=== PATIENT | female | born 1980 | race Caucasian/White ===

== ENCOUNTER 2017-07-02 13:29 | Emergency (ER) | payer SELFPAY ==
[~2017-07-02] VITALS: Ht 162.6 cm; Wt 93.0 kg
[2017-07-02] MEDS ORDERED: TRIA80OI TP (14:26)
[2017-07-02] MEDS ORDERED: CARB200T PO (14:26)
[2017-07-02] MEDS ORDERED: [UNRECOGNIZED DRUG - CODE] VG (14:26)
[2017-07-02] MEDS ORDERED: METR500T PO (14:26)
[2017-07-02] MEDS ORDERED: FLUC200T4 PO (14:26)
[2017-07-02] MEDS ORDERED: ACYC400T PO (14:26)
[2017-07-02] MEDS ORDERED: LIDOCAINE 2% TOPICAL JELLY 30GM TUBE. TP ONE (15:15)
[2017-07-02] MEDS ORDERED: IV NORMAL SALINE 1000ML BAG 1,000 ML IV ONE (15:30)
[2017-07-02 15:32] LABS: BASO % 1 % (0-3); EOS % 1 % (0-3); HEMATOCRIT 33.5 % (36.0-47.0); HEMOGLOBIN 11.2 g/dL (12.0-15.5); LYMPH # 2.2 x10^3/uL (1.0-4.8); LYMPH % 24 % (24-48); MEAN CORPUSCULAR HEMOGLOBIN 28 pg (25-35); MEAN CORPUSCULAR HGB CONC 34 g/dL (31-37); MEAN CORPUSCULAR VOLUME 85 fL (79-100); MONO % 8 % (0-9); NEUT % 66 % (31-73); PLATELET COUNT 288 x10^3/uL (140-400); RED BLOOD COUNT 3.94 x10^6/uL (3.50-5.40); RED CELL DISTRIBUTION WIDTH 14.4 % (11.5-14.5); WHITE BLOOD COUNT 9.3 x10^3/uL (4.0-11.0)
[2017-07-02 15:42] LABS: CALCIUM 8.5 mg/dL (8.5-10.1); CREATININE 0.8 mg/dL (0.6-1.0); GFR 81.6; POTASSIUM 3.3 mmol/L (3.5-5.1)
--- NOTE | 2017-07-02 15:42 | PHYS DOC ---
Past Medical History Past Medical History: GERD, UTI, Other Additional Past Medical Histor: BIPOLAR Past Surgical History: Cholecystectomy, Alcohol Use: Occasionally Drug Use: None Adult General Chief Complaint Chief Complaint: VAGINAL PROBLEM HPI HPI Patient is a 37 year old female with history of acid reflex presents today complaining of vaginal pain. Patient states a week and a half ago she went [place]. She states after that she had vigorous sex with the boyfriend. Patient states a couple days later she develops vaginal lesions. She states she was seen at urgent care and was diagnosed with herpes and was put on acyclovir. Patient states the lesions have gotten worse she cannot even urinate. Patient denies any fever. Denies any chance she is . Denies any abdominal pain. Review of Systems Review of Systems Constitutional: Denies fever or chills [] Eyes: Denies change in visual acuity, redness, or eye pain [] HENT: Denies nasal congestion or sore throat [] Respiratory: Denies cough or shortness of breath [] Cardiovascular: No additional information not addressed in HPI [] GI: Denies abdominal pain, nausea, vomiting, bloody stools or diarrhea [] : Denies dysuria or hematuria [] Musculoskeletal: Denies back pain or joint pain [] Integument: Denies rash or skin lesions [] Neurologic: Denies headache, focal weakness or sensory changes [] Endocrine: Denies polyuria or polydipsia [] Current Medications Current Medications Current Medications Medications (Trade) Dose Ordered Sig/Douglas Start Time Stop Time Status Last Admin Dose Admin Azithromycin (Zithromax) 1,000 mg 1X ONCE 07/02/17 16:15 07/02/17 16:16 DC 07/02/17 16:30 1,000 MG Ceftriaxone Sodium 50 ml @ 100 mls/hr 1X ONCE 07/02/17 16:15 07/02/17 16:44 DC 07/02/17 16:29 100 MLS/HR Cetirizine HCl (ZyrTEC) 10 mg 1X STAT 07/02/17 16:06 07/02/17 16:13 DC 07/02/17 16:30 10 MG Dexamethasone Sodium Phosphate (Decadron) 10 mg 1X ONCE 07/02/17 16:15 07/02/17 16:16 DC 07/02/17 16:30 10 MG Lidocaine HCl (Xylocaine 2% Topical 30gm Tube) 1 wily 1X ONCE 07/02/17 15:15 07/02/17 15:16 DC 07/02/17 15:13 1 WILY Sodium Chloride 1,000 ml @ 1,000 mls/hr 1X ONCE 07/02/17 15:30 07/02/17 16:29 DC 07/02/17 15:34 1,000 MLS/HR Allergies Allergies Allergies Coded Allergies Type Severity Reaction Last Updated Verified Penicillins Allergy Severe 07/02/17 Yes Sulfa (Sulfonamide Antibiotics) Allergy Severe 07/02/17 Yes Physical Exam Physical Exam Constitutional: Well developed, well nourished, no acute distress, non-toxic appearance. [] HENT: Normocephalic, atraumatic, bilateral external ears normal, oropharynx moist, no oral exudates, nose normal. [] Eyes: PERRLA, EOMI, conjunctiva normal, no discharge. [] Neck: Normal range of motion, no tenderness, supple, no stridor. [] Cardiovascular:Heart rate regular rhythm, no murmur [] Lungs & Thorax: Bilateral breath sounds clear to auscultation [] Abdomen: Bowel sounds normal, soft, no tenderness, no masses, no pulsatile masses. [] Pelvic exam, external pelvic area with a moderate wound suspicious of herpes. Unable to do pelvic exam. Skin: Warm, dry, no erythema, no rash. [] Back: No tenderness, no CVA tenderness. [] Extremities: No tenderness, no cyanosis, no clubbing, ROM intact, no edema. [] Neurologic: Alert and oriented X 3, normal motor function, normal sensory function, no focal deficits noted. [] Psychologic: Affect normal, judgement normal, mood normal. [] Current Patient Data Vital Signs Vital Signs Date Time Temp Pulse Resp B/P (MAP) Pulse Ox O2 Delivery O2 Flow Rate FiO2 07/02/17 14:00 98.0 86 22 118/77 (91) 98 Room Air 98.0 Lab Values Laboratory Tests Test 07/02/17 14:40 07/02/17 15:13 07/02/17 16:04 White Blood Count 9.3 x10^3/uL (4.0-11.0) Red Blood Count 3.94 x10^6/uL (3.50-5.40) Hemoglobin 11.2 g/dL (12.0-15.5) L Hematocrit 33.5 % (36.0-47.0) L Mean Corpuscular Volume 85 fL (79-100) Mean Corpuscular Hemoglobin 28 pg (25-35) Mean Corpuscular Hemoglobin Concent 34 g/dL (31-37) Red Cell Distribution Width 14.4 % (11.5-14.5) Platelet Count 288 x10^3/uL (140-400) Neutrophils (%) (Auto) 66 % (31-73) Lymphocytes (%) (Auto) 24 % (24-48) Monocytes (%) (Auto) 8 % (0-9) Eosinophils (%) (Auto) 1 % (0-3) Basophils (%) (Auto) 1 % (0-3) Neutrophils # (Auto) 6.1 x10^3uL (1.8-7.7) Lymphocytes # (Auto) 2.2 x10^3/uL (1.0-4.8) Monocytes # (Auto) 0.8 x10^3/uL (0.0-1.1) Eosinophils # (Auto) 0.1 x10^3/uL (0.0-0.7) Basophils # (Auto) 0.0 x10^3/uL (0.0-0.2) Sodium Level 139 mmol/L (136-145) Potassium Level 3.3 mmol/L (3.5-5.1) L Chloride Level 102 mmol/L (98-107) Carbon Dioxide Level 29 mmol/L (21-32) Anion Gap 8 (6-14) Blood Urea Nitrogen 10 mg/dL (7-20) Creatinine 0.8 mg/dL (0.6-1.0) Estimated GFR (Cockcroft-Gault) 81.6 Glucose Level 98 mg/dL (70-99) Calcium Level 8.5 mg/dL (8.5-10.1) POC Urine HCG, Qualitative Hcg negative (Negative) Urine Collection Type Unknown Urine Color Yellow Urine Clarity Clear Urine pH 6.0 Urine Specific [place] 1.010 Urine Protein Negative mg/dL (NEG-TRACE) Urine Glucose (UA) Negative mg/dL (NEG) Urine Ketones (Stick) Negative mg/dL (NEG) Urine Blood Negative (NEG) Urine Nitrite Negative (NEG) Urine Bilirubin Negative (NEG) Urine Urobilinogen Dipstick 0.2 mg/dL (0.2 mg/dL) Urine Leukocyte Esterase Moderate (NEG) Urine RBC Occ /HPF (0-2) Urine WBC 1-4 /HPF (0-4) Urine Squamous Epithelial Cells Few /LPF Urine Bacteria Few /HPF (0-FEW) Laboratory Tests 07/02/17 14:40 Laboratory Tests 07/02/17 14:40 Microbiology 07/02/17 Wet Prep - Final, Complete EKG EKG [] Radiology/Procedures Radiology/Procedures [] Course & Med Decision Making Course & Med Decision Making Pertinent Labs and Imaging studies reviewed. (See chart for details) Patient is in the ED complaining of vaginal pain due to vaginal lesions that she 's had for week. She is currently on acyclovir. Patient is also complaining of dysuria. Urine positive for UTI. She was encouraged to continue taking acyclovir. She was also given Rocephin and azithromycin in the ED. She is also on Flagyl. We discharged her with instructions not to have sex until her lesions have cleared. She was given lidocaine cream for application vaginally as needed for pain. She'll follow-up with her own PCP as soon as she can. She was also discharged with clindamycin for UTI. Dragon Disclaimer Dragon Disclaimer This electronic medical record was generated, in whole or in part, using a voice recognition dictation system. Departure Departure Impression: Primary Impression: Vaginal lesion Additional Impression: Urinary tract infection Disposition: HOME, SELF-CARE Condition: STABLE Referrals: NO PCP (PCP) Patient Instructions: Urinary Tract Infection Additional Instructions: You were seen for vaginal pain with vaginal lesions. Continue taking acyclovir. We put you on clindamycin for UTI. Ensure you complete it. Follow-up with the primary care doctor as soon as he can. Scripts Tramadol Hcl (ULTRAM) 50 Mg Tablet 1 TAB PO Q6HRS, #30 TAB Prov: PEYTON ÁLVAREZ APRN 07/02/17 Clindamycin Hcl (CLINDAMYCIN HCL) 150 Mg Capsule 3 CAP PO TID, #90 CAP Prov: PEYTON ÁLVAREZ APRN 07/02/17 Problem Qualifiers Additional Impression: Urinary tract infection Urinary tract infection type: acute cystitis Hematuria presence: without hematuria Qualified Codes: N30.00 - Acute cystitis without hematuria PEYTON ÁLVAREZ APRN Jul 02, 2017 15:42
[2017-07-02] MEDS ORDERED: CETIRIZINE HCL 10 MG TABLET. PO STA (16:06)
[2017-07-02] MEDS ORDERED: AZITHROMYCIN 250 MG TABLET. PO ONE (16:15)
[2017-07-02] MEDS ORDERED: DEXAMETHASONE SOD PHOS 20 MG/5 ML VIAL. IV ONE (16:15)
[2017-07-02 16:16] LABS: BILIRUBIN,URINE NEGATIVE (NEG); GLUCOSE,URINE NEGATIVE (NEG); NITRITE,URINE NEGATIVE (NEG); PROTEIN,URINE NEGATIVE (NEG-TRACE); UROBILINOGEN,URINE 0.2 mg/dL (0.2 mg/dL)
[2017-07-02 16:30] VITALS: BP 121/80
[2017-07-02 16:46] LABS: BACTERIA,URINE FEW /HPF (0-FEW); RBC,URINE OCC /HPF (0-2); SQUAMOUS EPITHELIAL CELL,UR FEW /LPF
[2017-07-02] MEDS ORDERED: TRAM-48 PO (17:01)
[2017-07-02] MEDS ORDERED: CLIN150C14 PO (17:01)
[2017-07-05 14:24] LABS: HERPES SIMPLEX TYPE 1 Positive (Negative); HERPES SIMPLEX TYPE 2 Negative (Negative)
== END 2017-07-02 17:10 | disposition home or self-care (01) ==
LOC: ER 13:29
DX: N89.8 Other specified noninflammatory disorders of vagina (principal); N30.00 Acute cystitis without hematuria; K21.9 Gastro-esophageal reflux disease without esophagitis; F31.9 Bipolar disorder, unspecified; Z90.49 Acquired absence of other specified parts of digestive tract; Z87.440 Personal history of urinary (tract) infections; Z88.0 Allergy status to penicillin; Z88.2 Allergy status to sulfonamides
CPT/HCPCS: 36415; 80048; 81001; 81025; 85027; 87491; 87529; 87591; 96361; 96365; 96375; 99284; J0690; J1100; J7030; Q0111; Q0144

== ENCOUNTER 2018-12-10 09:21 | Inpatient (IN) | payer OTHER ==
[2018-12-10] VITALS (7 sets, daily range): BP systolic 118–154; BP diastolic 69–107
[~2018-12-10] VITALS: Ht 162.6 cm; Wt 99.8 kg
[~2018-12-10 09:21] MED LIST: ACYC400T PO; CARB200T PO; CLIN150C14 PO; CLINDAMYCIN 900MG PREMIX 50 ML IV PRN; FLUC200T4 PO; METR500T PO; TRAM-48 PO; TRIA80OI TP; [UNRECOGNIZED DRUG - CODE] VG
--- NOTE | 2018-12-10 11:03 | RAD ---
Portable right ankle, 3 views, 12/10/2018: HISTORY: Fall, injury There is a slightly comminuted oblique fracture of the distal fibular shaft with mild posterior and lateral displacement of the major distal fracture fragment at the fracture site. There is an oblique fracture of the medial malleolus with slight distraction of the distal fracture fragment. A posterior malleolar fracture is also noted with associated irregularity of the posterior aspect of the distal tibial articular surface. No ankle dislocation is evident. There is moderate diffuse soft tissue swelling. IMPRESSION: Acute fractures of the distal fibula, medial malleolus and posterior malleolus as described above. Electronically signed by: Roderick Tee MD (12/10/2018 10:59 AM) [facility]
--- NOTE | 2018-12-10 11:25 | PHYS DOC ---
Past Medical History Past Medical History: GERD, UTI, Other Additional Past Medical Histor: BIPOLAR Past Surgical History: Cholecystectomy, Alcohol Use: Occasionally Drug Use: None Adult General Chief Complaint Chief Complaint: MECHANICAL FALL HPI HPI Patient is a 38 year old female who presents with moderate right lateral ankle pain that began today after she slipped on ice and fell. Patient denies any loss of consciousness. She states she is not able to bear weight on the right lower extremity Review of Systems Review of Systems Constitutional: Denies fever or chills [] Musculoskeletal: Reports right ankle pain Integument: Denies rash or skin lesions [] Neurologic: Denies headache, focal weakness or sensory changes [] All other systems were reviewed and found to be within normal limits, except as documented in this note. Current Medications Current Medications Current Medications Medications (Trade) Dose Ordered Sig/Douglas Start Time Stop Time Status Last Admin Dose Admin Fentanyl Citrate (Fentanyl 2ml Vial) 50 mcg PRN Q5MIN PRN 12/10/18 11:30 12/10/18 19:00 Hydromorphone HCl (Dilaudid) 0.5 mg PRN Q10MIN PRN 12/10/18 11:30 12/10/18 19:00 Lidocaine HCl (Xylocaine-Mpf 1% 2ml Vial) 2 ml PRN 1X PRN 12/10/18 11:30 12/10/18 19:00 Morphine Sulfate (Morphine Sulfate) 1 mg PRN Q10MIN PRN 12/10/18 11:30 12/10/18 19:00 Ondansetron HCl (Zofran) 4 mg PRN Q8HRS PRN 12/10/18 11:30 12/11/18 11:29 Prochlorperazine Edisylate (Compazine) 5 mg PACU PRN PRN 12/10/18 11:30 12/10/18 19:00 Ringer's Solution 1,000 ml @ 30 mls/hr Q24H 12/10/18 11:30 12/10/18 23:29 12/10/18 11:57 30 MLS/HR Allergies Allergies Allergies Coded Allergies Type Severity Reaction Last Updated Verified Penicillins Allergy Severe 07/02/17 Yes Sulfa (Sulfonamide Antibiotics) Allergy Severe 07/02/17 Yes Physical Exam Physical Exam Constitutional: Well developed, well nourished, no acute distress, non-toxic appearance. [] Skin: Warm, dry, no erythema, no rash. [] Back: No tenderness, no CVA tenderness. [] Extremities: Right ankle appears of a slightly deformed. Soft tissue swelling noted on the right ankle. Bruising noted on the right lateral ankle. Tenderness on palpation of the right lateral as well as medial ankle. Limited range of motion to the right ankle due to pain. Full range of motion to the right toes. + 2 right pedal pulse. Cap refill less than 2 seconds the right lower extremity. Neurologic: Alert and oriented X 3, normal motor function, normal sensory function, no focal deficits noted. [] Psychologic: Affect normal, judgement normal, mood normal. [] Current Patient Data Vital Signs Vital Signs Date Time Temp Pulse Resp B/P (MAP) Pulse Ox O2 Delivery O2 Flow Rate FiO2 12/10/18 11:35 74 18 100 12/10/18 10:29 98.2 152/96 (114) Room Air 98.2 Lab Values Laboratory Tests Test 12/10/18 11:45 White Blood Count 9.2 x10^3/uL (4.0-11.0) Red Blood Count 4.15 x10^6/uL (3.50-5.40) Hemoglobin 12.7 g/dL (12.0-15.5) Hematocrit 35.6 % (36.0-47.0) L Mean Corpuscular Volume 86 fL (79-100) Mean Corpuscular Hemoglobin 31 pg (25-35) Mean Corpuscular Hemoglobin Concent 36 g/dL (31-37) Red Cell Distribution Width 13.1 % (11.5-14.5) Platelet Count 312 x10^3/uL (140-400) Neutrophils (%) (Auto) 74 % (31-73) H Lymphocytes (%) (Auto) 17 % (24-48) L Monocytes (%) (Auto) 7 % (0-9) Eosinophils (%) (Auto) 2 % (0-3) Basophils (%) (Auto) 0 % (0-3) Neutrophils # (Auto) 6.8 x10^3uL (1.8-7.7) Lymphocytes # (Auto) 1.5 x10^3/uL (1.0-4.8) Monocytes # (Auto) 0.6 x10^3/uL (0.0-1.1) Eosinophils # (Auto) 0.2 x10^3/uL (0.0-0.7) Basophils # (Auto) 0.0 x10^3/uL (0.0-0.2) Laboratory Tests 12/10/18 11:45 EKG EKG [] Radiology/Procedures Radiology/Procedures []PROCEDURE: ANKLE RIGHT 3V Portable right ankle, 3 views, 12/10/2018: HISTORY: Fall, injury There is a slightly comminuted oblique fracture of the distal fibular shaft with mild posterior and lateral displacement of the major distal fracture fragment at the fracture site. There is an oblique fracture of the medial malleolus with slight distraction of the distal fracture fragment. A posterior malleolar fracture is also noted with associated irregularity of the posterior aspect of the distal tibial articular surface. No ankle dislocation is evident. There is moderate diffuse soft tissue swelling. IMPRESSION: Acute fractures of the distal fibula, medial malleolus and posterior malleolus as described above. Electronically signed by: Roderick Tee MD (12/10/2018 10:59 AM) [facility] DICTATED and SIGNED BY: RODERICK TEE MD DATE: 12/10/18 1058 Course & Med Decision Making Course & Med Decision Making Pertinent Labs and Imaging studies reviewed. (See chart for details) This is a 38-year-old female patient presented to the ED today with right ankle pain status post falling today. Right ankle x-rays interpreted by radiologist were noted for- acute fractures of the distal fibula, medial malleolus and posterior malleolus as described above 11:[address] Hutson who will take patient to surgery. Consulted with Dr. Keys who accepted patient for admission Dragon Disclaimer Dragon Disclaimer This electronic medical record was generated, in whole or in part, using a voice recognition dictation system. Departure Departure Impression: Primary Impression: Fall from standing Additional Impressions: Closed fibular fracture Fx medial malleolus-closed Fracture, posterior malleolus Disposition: 09 ADMITTED INPATIENT Condition: STABLE Referrals: NO PCP (PCP) Problem Qualifiers Primary Impression: Fall from standing Encounter type: initial encounter Qualified Codes: W19.XXXA - Unspecified fall, initial encounter Additional Impressions: Closed fibular fracture Encounter type: initial encounter Fibula location: distal Fracture morphology: unspecified fracture morphology Laterality: right Qualified Codes: S82.831A - Other fracture of upper and lower end of right fibula, initial encounter for closed fracture Fx medial malleolus-closed Encounter type: initial encounter Fracture alignment: displaced Laterality : right Qualified Codes: S82.51XA - Displaced fracture of medial malleolus of right tibia, initial encounter for closed fracture Fracture, posterior malleolus Encounter type: initial encounter Fracture type: closed Laterality: right Qualified Codes: S82.391A - Other fracture of lower end of right tibia, initial encounter for closed fracture PEYTON ÁLVAREZ [employer]ATOR Dec 10, 2018 11:25
[2018-12-10] MEDS ORDERED: ONDANSETRON PF 4 MG/2 ML VIAL. IV PRN (11:30)
[2018-12-10] MEDS ORDERED: HYDROmorphone 2 MG/ML VIAL IV PRN (11:30)
[2018-12-10] MEDS ORDERED: MORPHINE SULFATE 2 MG/ML VIAL. IV PRN (11:30)
[2018-12-10] MEDS ORDERED: fentaNYL PF VIAL 100 MCG/2 ML VIAL IV PRN (11:30)
[2018-12-10] MEDS ORDERED: IV RINGERS,LACTATED 1000ML 1,000 ML IV SCH (11:30)
[2018-12-10] MEDS ORDERED: MORPHINE SULFATE 10 MG/ML VIAL. IV ONE (11:30)
[2018-12-10] MEDS ORDERED: LIDOCAINE 1% PF 2 ML VIAL. ID PRN (11:30)
[2018-12-10 11:51] LABS: BASO % 0 % (0-3); EOS # 0.2 x10^3/uL (0.0-0.7); EOS % 2 % (0-3); HEMATOCRIT 35.6 % (36.0-47.0); HEMOGLOBIN 12.7 g/dL (12.0-15.5); LYMPH # 1.5 x10^3/uL (1.0-4.8); LYMPH % 17 % (24-48); MEAN CORPUSCULAR HEMOGLOBIN 31 pg (25-35); MEAN CORPUSCULAR HGB CONC 36 g/dL (31-37); MEAN CORPUSCULAR VOLUME 86 fL (79-100); MONO # 0.6 x10^3/uL (0.0-1.1); MONO % 7 % (0-9); NEUT # 6.8 x10^3uL (1.8-7.7); NEUT % 74 % (31-73); PLATELET COUNT 312 x10^3/uL (140-400); RED BLOOD COUNT 4.15 x10^6/uL (3.50-5.40); RED CELL DISTRIBUTION WIDTH 13.1 % (11.5-14.5); WHITE BLOOD COUNT 9.2 x10^3/uL (4.0-11.0)
[2018-12-10 12:05] LABS: CALCIUM 9.1 mg/dL (8.5-10.1); CREATININE 0.7 mg/dL (0.6-1.0); GFR 94.7; POTASSIUM 4.7 mmol/L (3.5-5.1)
[2018-12-10] MEDS ORDERED: SEVOFLURANE 61 TO 120 MINUTES. IH ONE (12:08)
[2018-12-10] MEDS ORDERED: fentaNYL PF VIAL 100 MCG/2 ML VIAL ONE ×3 (12:08→14:34)
[2018-12-10] MEDS ORDERED: KETOROLAC 30 MG/ML INJ FOR OR. INJ ONE (12:09)
[2018-12-10] MEDS ORDERED: PROPOFOL 20 ML IV ONE (12:09)
[2018-12-10] MEDS ORDERED: ONDANSETRON PF 4 MG/2 ML VIAL. ONE ×2 (12:09→12:24)
[2018-12-10] MEDS ORDERED: DEXAMETHASONE SOD PHOS 20 MG/5 ML VIAL. ONE (12:09)
[2018-12-10] MEDS ORDERED: LIDOCAINE 2% PF 5 ML VIAL. ONE (12:09)
[2018-12-10 12:12] LABS: PREG TEST PT QUAL NEGATIVE (NEG); PROTHROMBIN TIME PATIENT 12.4 SEC (11.7-14.0)
[2018-12-10] MEDS ORDERED: FAMOTIDINE 20 MG/2 ML VIAL ONE (12:12)
[2018-12-10] MEDS ORDERED: METOCLOPRAMIDE HCL 10 MG/2 ML VIAL. ONE (12:12)
[2018-12-10] MEDS ORDERED: ePHEDrine PF IN SALINE 50 MG/5 ML DISP.SYRIN IV ONE (12:53)
[2018-12-10] MEDS ORDERED: BUPIVAC MPF-EPI 0.5%-1:200000 30 ML VIAL. ONE (12:57)
[2018-12-10] MEDS ORDERED: SEVOFLURANE 31 TO 60 MINUTES. IH ONE (13:51)
[2018-12-10] MEDS: fentaNYL PF VIAL 100 MCG/2 ML VIAL IV PRN ×4 (14:10→14:55)
[2018-12-10] MEDS: PROCHLORPERAZINE 10 MG/2 ML VIAL. IV PRN ×2 (14:10→14:32)
[2018-12-10] MEDS ORDERED: oxyCODONE/APAP 5/325 1 TAB TABLET PO PRN (16:00)
--- NOTE | 2018-12-10 16:23 | SSS ---
ADMIT DATE: 12/10/2018 CHIEF COMPLAINT: Fall with ankle pain. HISTORY OF PRESENT ILLNESS: The patient is a pleasant 38-year-old female who fell. She suffered ankle fracture. She rates her pain at 10/10. She has associated anxiety, describes as agonizing, worse with moving, better with sitting still. I discussed the case with ER physician. We are going to admit the patient. She is going to surgery in an hour. PAST MEDICAL HISTORY: Anxiety and restless leg syndrome. ALLERGIES: None. FAMILY HISTORY: Hypertension. SOCIAL HISTORY: She does not drink, smoke or take drugs. She is . MEDICATIONS: Reviewed. REVIEW OF SYSTEMS: GENERAL: No history of weight change, weakness or fevers. SKIN: No bruising, hair changes or rashes. EYES: No blurred, double or loss of vision. NOSE AND THROAT: No history of nosebleeds, hoarseness or sore throat. HEART: No history of palpitations, chest pain or shortness of breath on exertion. LUNGS: Denies cough, hemoptysis, wheezing or shortness of breath. GASTROINTESTINAL: Denies changes in appetite, nausea, vomiting, diarrhea or constipation. GENITOURINARY: No history of frequency, urgency, hesitancy or nocturia. NEUROLOGIC: Denies history of numbness, tingling, tremor or weakness. PSYCHIATRIC: No history of panic, anxiety or depression. ENDOCRINE: No history of heat or cold intolerance, polyuria or polydipsia. EXTREMITIES: She complains of right ankle pain. PHYSICAL EXAMINATION: VITAL SIGNS: Temperature afebrile, pulse 98, respirations 18, blood pressure 144/67. GENERAL: She is alert, cooperative. Her is present. HEART: Normal S1, S2. LUNGS: Clear to auscultation. ABDOMEN: Soft, distended. EXTREMITIES: The right lower extremity is in a brace. Pedal pulses are intact. ENDOCRINE: No thyromegaly. LYMPHATICS: No cervical nodes. HEMATOPOIETIC: No bruising. PSYCHIATRIC: She is anxious. ASSESSMENT AND PLAN: Fall with ankle fracture. The patient has been admitted. We will consult Orthopedics. She is going to surgery in an hour. Postoperatively, she is going to need wound care, PT, OT, p.r.n. pain meds. Hope to discharge tomorrow. DISPOSITION: Home. ACTIVITY: As tolerated. DIET: Low sodium. MEDICATIONS: Please see MRAD. TOTAL TIME: 31 minutes. ROSA SCHNEIDER DO DR: JE/amarilys JOB#: [id number] / [id number]
[2018-12-10] MEDS: MORPHINE SULFATE 4 MG/ML VIAL. IV PRN ×2 (16:50→21:18)
[2018-12-10] MEDS: oxyCODONE/APAP 5/325 1 TAB TABLET PO PRN (16:50)
--- NOTE | 2018-12-10 17:29 | PDOC4 ---
Operative Note Operative Note Date of surgery: 12/10/2018 Preoperative diagnosis: Displaced bi malleolar right ankle fracture Postoperative diagnosis: Same Operative procedure: Operative reduction internal fixation bimalleolar right ankle fracture Surgeon: Haresh Anesthesia: Gen. Estimated blood loss 10 mL Complications: None Operative indications: Patient is a 38-year-old female who injured her right ankle as noted in my dictated consultation note. I had described the injury to her and the rationale for fixation due to the instability. We had talked about postoperative weightbearing restrictions possibility of infection nonhealing nerve or blood vessel damage continued pain medical or other anesthetic complications among others. All her questions were answered she wishes to proceed with surgical evaluation and treatment. Operative text: Patient was identified procedure verified patient placed in the supine position on the operating table. After adequate amounts of general anesthesia were administered a thigh tourniquet was placed on the right lower extremity and the right lower extremity was prepped and draped in standard sterile fashion. After timeout was performed patient procedure identified and verified the right lower extremity was exsanguinated by Esmarch bandage tourniquet inflated to 350 mmHg and the incision was made curvilinear over the medial malleolus subperiosteal dissection was carried out it was anatomically reduced under fluoroscopic guidance and 2 guidewires were placed across the fracture site and 40 mm partially threaded 4.0 cannulated screws were placed and provided excellent fixation and anatomic alignment. The fibula fracture was then addressed with a lateral incision subperiosteal dissection was carried out a lag screw was placed and a 7 hole Galileo compression plate was placed excellent anatomic reduction was noted with good reduction of the ankle joint mortise with placement of the plate 6 cortices proximal and distal were achieved the seventh hole was left blank due to the lag screw and fracture site. Thorough irrigation carried out normal saline solution subcutaneous closure with buried Vicryl suture skin closure with jeanne a well-padded posterior splint with sterile dressings were placed toes were noted be warm pink find deflation of tourniquet patient was returned recovery room in stable condition having tolerated the procedure well BLAINE EDMOND MD Dec 10, 2018 17:29
--- NOTE | 2018-12-10 17:41 | NUR ---
Pt arrived from PACU at 1515, stable, alert x4. Family at bedside. Pt started on frequent vital signs, and assessed. Will continue to monitor.
[2018-12-10] MEDS ORDERED: CARB200T PO (17:46)
[2018-12-10] MEDS ORDERED: OMEP20TA63 PO (17:47)
[2018-12-10] MEDS ORDERED: CETI10TA22 PO (17:48)
--- NOTE | 2018-12-11 00:10 | CONS ---
DATE OF CONSULTATION: 12/10/2018 ORTHOPEDIC CONSULTATION REQUESTING PHYSICIANS: Riri Silverman, nurse practitioner and Dr. Nilay Keys. REASON FOR CONSULTATION: Right ankle fracture. HISTORY OF PRESENT ILLNESS: The patient is a 38-year-old female that had the sudden onset of right ankle pain and deformity after she slipped on ice and had a fall with her leg underneath her today. She was unable to bear weight. She denies hitting her head or any loss of consciousness, really has no other extremity or joint pain. PAST MEDICAL HISTORY: Significant for bipolar disorder, reflux, history of urinary tract infections. PAST SURGICAL HISTORY: and cholecystectomy. ALLERGIES: INCLUDE PENICILLIN, WHICH IS A RASH AND SULFA, WHICH GAVE HER, I BELIEVE, A SKIN REACTION WELL. MEDICATIONS: Medication list is reviewed. SOCIAL HISTORY: She is accompanied by a family member today. She occasionally uses alcohol. Denies tobacco or drug use. REVIEW OF SYSTEMS: Denies any headache, no loss of consciousness, no chest pain, shortness of breath, radiating pain, focal weakness, numbness or tingling. No change in bowel or bladder function. Again, no other joint pain or swelling. PHYSICAL EXAMINATION: GENERAL: Pleasant, cooperative 38-year-old female. VITAL SIGNS: Temperature 98.2, pulse 74, respirations 18, 100% saturation on room air, blood pressure 152/96. HEENT: Atraumatic, normocephalic. HEART: Regular rate and rhythm. LUNGS: Clear to auscultation bilaterally. ABDOMEN: Benign. EXTREMITIES: Examination of the right ankle reveals obvious deformity. Skin overlying is intact. She is tender on palpation. She has normal examination of the contralateral ankle. Normal alignment, stability of bilateral hips and knees with overall intact motor function, distal pulses, sensation, reflexes, skin in both upper and lower extremities throughout. IMAGING: X-rays show a displaced bimalleolar ankle fracture with a higher fracture in the fibula and displaced fracture in the medial malleolus. IMPRESSION: Displaced bimalleolar ankle fracture. TREATMENT PLAN: I talked to her and her family about the rationale for surgical treatment as the ankle is unstable, described the normal functional anatomy of the ankle and the rationale for the treatment of plating of the fibula fracture and screw placement in the medial portion of the ankle required protection that is anticipated over approximately 6 weeks of nonweightbearing, possibility of infection, nerve or blood vessel damage, nonhealing, continued pain and medical or other anesthetic complications associated with surgery. She wishes to proceed with surgical evaluation and treatment, which will occur today as she was already evaluated by Medical Service and has been n.p.o. except clear liquids early this morning. BLAINE EDMOND MD DR: PHYLICIA/nts JOB#: [id number] / [id number]
[2018-12-11] MEDS: oxyCODONE/APAP 5/325 1 TAB TABLET PO PRN ×4 (01:58→15:42)
[2018-12-11 03:00] VITALS: BP 110/77
[2018-12-11] MEDS: MORPHINE SULFATE 4 MG/ML VIAL. IV PRN (06:43)
[2018-12-11 07:00] VITALS: BP 102/69
[2018-12-11 07:09] LABS: BASO % 0 % (0-3); EOS # 0.1 x10^3/uL (0.0-0.7); EOS % 1 % (0-3); HEMATOCRIT 31.3 % (36.0-47.0); HEMOGLOBIN 10.9 g/dL (12.0-15.5); LYMPH # 2.1 x10^3/uL (1.0-4.8); LYMPH % 22 % (24-48); MEAN CORPUSCULAR HEMOGLOBIN 30 pg (25-35); MEAN CORPUSCULAR HGB CONC 35 g/dL (31-37); MEAN CORPUSCULAR VOLUME 86 fL (79-100); MONO # 0.8 x10^3/uL (0.0-1.1); MONO % 8 % (0-9); NEUT # 6.9 x10^3uL (1.8-7.7); NEUT % 70 % (31-73); PLATELET COUNT 257 x10^3/uL (140-400); RED BLOOD COUNT 3.62 x10^6/uL (3.50-5.40); RED CELL DISTRIBUTION WIDTH 13.2 % (11.5-14.5); WHITE BLOOD COUNT 9.9 x10^3/uL (4.0-11.0)
[2018-12-11 07:26] LABS: CALCIUM 8.2 mg/dL (8.5-10.1); CREATININE 0.7 mg/dL (0.6-1.0); GFR 94.7; POTASSIUM 3.8 mmol/L (3.5-5.1)
[2018-12-11] MEDS ORDERED: CETIRIZINE HCL 10 MG TABLET. PO SCH (09:00)
[2018-12-11] MEDS ORDERED: ACYCLOVIR 200 MG CAPSULE. PO SCH (09:00)
[2018-12-11] MEDS ORDERED: carBAMazepine 200 MG TABLET PO SCH (09:00)
[2018-12-11] MEDS ORDERED: ENOXAPARIN 40 MG/0.4 ML SYRINGE. SQ SCH (09:00)
[2018-12-11] MEDS ORDERED: PANTOPRAZOLE 40 MG TABLET.DR. PO SCH (09:00)
--- NOTE | 2018-12-11 10:49 | PDOC ---
PROGRESS NOTES History of Present Illness History of Present Illness ASSESSMENT AND PLAN: Fall with ankle fracture. admitted. consult Orthopedics. Postoperatively, well, no soa or chest pain, working with PT wound care, PT, OT, p.r.n. pain meds. HOME TODAY AFTER PT SESSION Vitals Vitals Vital Signs Date Time Temp Pulse Resp B/P (MAP) Pulse Ox O2 Delivery O2 Flow Rate FiO2 12/11/18 08:32 18 Room Air 12/11/18 07:00 97.9 70 102/69 (80) 95 97.9 12/11/18 06:43 1.5 Physical Exam Physical Exam GENERAL: She is alert, cooperative. HEART: Normal S1, S2. LUNGS: Clear to auscultation. ABDOMEN: Soft, distended. EXTREMITIES: The right lower extremity is in a brace. Pedal pulses are intact. ENDOCRINE: No thyromegaly. LYMPHATICS: No cervical nodes. HEMATOPOIETIC: No bruising. PSYCHIATRIC: She is anxious. General: Alert, Oriented X3, Cooperative, mild distress Heart: Regular rate Lungs: Clear Abdomen: Normal bowel sounds, Soft, No tenderness Extremities: No clubbing, No cyanosis Skin: No significant lesion Labs LABS Laboratory Tests Test 12/10/18 11:45 12/11/18 05:50 White Blood Count 9.2 x10^3/uL (4.0-11.0) 9.9 x10^3/uL (4.0-11.0) Red Blood Count 4.15 x10^6/uL (3.50-5.40) 3.62 x10^6/uL (3.50-5.40) Hemoglobin 12.7 g/dL (12.0-15.5) 10.9 g/dL (12.0-15.5) Hematocrit 35.6 % (36.0-47.0) 31.3 % (36.0-47.0) Mean Corpuscular Volume 86 fL (79-100) 86 fL (79-100) Mean Corpuscular Hemoglobin 31 pg (25-35) 30 pg (25-35) Mean Corpuscular Hemoglobin Concent 36 g/dL (31-37) 35 g/dL (31-37) Red Cell Distribution Width 13.1 % (11.5-14.5) 13.2 % (11.5-14.5) Platelet Count 312 x10^3/uL (140-400) 257 x10^3/uL (140-400) Neutrophils (%) (Auto) 74 % (31-73) 70 % (31-73) Lymphocytes (%) (Auto) 17 % (24-48) 22 % (24-48) Monocytes (%) (Auto) 7 % (0-9) 8 % (0-9) Eosinophils (%) (Auto) 2 % (0-3) 1 % (0-3) Basophils (%) (Auto) 0 % (0-3) 0 % (0-3) Neutrophils # (Auto) 6.8 x10^3uL (1.8-7.7) 6.9 x10^3uL (1.8-7.7) Lymphocytes # (Auto) 1.5 x10^3/uL (1.0-4.8) 2.1 x10^3/uL (1.0-4.8) Monocytes # (Auto) 0.6 x10^3/uL (0.0-1.1) 0.8 x10^3/uL (0.0-1.1) Eosinophils # (Auto) 0.2 x10^3/uL (0.0-0.7) 0.1 x10^3/uL (0.0-0.7) Basophils # (Auto) 0.0 x10^3/uL (0.0-0.2) 0.0 x10^3/uL (0.0-0.2) Prothrombin Time 12.4 SEC (11.7-14.0) Prothromb Time International Ratio 1.0 (0.8-1.1) Activated Partial Thromboplast Time 30 SEC (24-38) Sodium Level 140 mmol/L (136-145) 139 mmol/L (136-145) Potassium Level 4.7 mmol/L (3.5-5.1) 3.8 mmol/L (3.5-5.1) Chloride Level 103 mmol/L (98-107) 103 mmol/L (98-107) Carbon Dioxide Level 30 mmol/L (21-32) 29 mmol/L (21-32) Anion Gap 7 (6-14) 7 (6-14) Blood Urea Nitrogen 10 mg/dL (7-20) 9 mg/dL (7-20) Creatinine 0.7 mg/dL (0.6-1.0) 0.7 mg/dL (0.6-1.0) Estimated GFR (Cockcroft-Gault) 94.7 94.7 Glucose Level 97 mg/dL (70-99) 102 mg/dL (70-99) Calcium Level 9.1 mg/dL (8.5-10.1) 8.2 mg/dL (8.5-10.1) Serum Test, Qualitative Negative (NEG) Assessment and Plan Assessmemt and Plan Problems Medical Problems: (1) Closed fibular fracture Status: Acute (2) Fall from standing Status: Acute (3) Fracture, posterior malleolus Status: Acute (4) Fx medial malleolus-closed Status: Acute Comment Review of Relevant I have reviewed the following items dontae (where applicable) has been applied. Labs Laboratory Tests Test 12/10/18 11:45 12/11/18 05:50 White Blood Count 9.2 x10^3/uL (4.0-11.0) 9.9 x10^3/uL (4.0-11.0) Red Blood Count 4.15 x10^6/uL (3.50-5.40) 3.62 x10^6/uL (3.50-5.40) Hemoglobin 12.7 g/dL (12.0-15.5) 10.9 g/dL (12.0-15.5) Hematocrit 35.6 % (36.0-47.0) 31.3 % (36.0-47.0) Mean Corpuscular Volume 86 fL (79-100) 86 fL (79-100) Mean Corpuscular Hemoglobin 31 pg (25-35) 30 pg (25-35) Mean Corpuscular Hemoglobin Concent 36 g/dL (31-37) 35 g/dL (31-37) Red Cell Distribution Width 13.1 % (11.5-14.5) 13.2 % (11.5-14.5) Platelet Count 312 x10^3/uL (140-400) 257 x10^3/uL (140-400) Neutrophils (%) (Auto) 74 % (31-73) 70 % (31-73) Lymphocytes (%) (Auto) 17 % (24-48) 22 % (24-48) Monocytes (%) (Auto) 7 % (0-9) 8 % (0-9) Eosinophils (%) (Auto) 2 % (0-3) 1 % (0-3) Basophils (%) (Auto) 0 % (0-3) 0 % (0-3) Neutrophils # (Auto) 6.8 x10^3uL (1.8-7.7) 6.9 x10^3uL (1.8-7.7) Lymphocytes # (Auto) 1.5 x10^3/uL (1.0-4.8) 2.1 x10^3/uL (1.0-4.8) Monocytes # (Auto) 0.6 x10^3/uL (0.0-1.1) 0.8 x10^3/uL (0.0-1.1) Eosinophils # (Auto) 0.2 x10^3/uL (0.0-0.7) 0.1 x10^3/uL (0.0-0.7) Basophils # (Auto) 0.0 x10^3/uL (0.0-0.2) 0.0 x10^3/uL (0.0-0.2) Prothrombin Time 12.4 SEC (11.7-14.0) Prothromb Time International Ratio 1.0 (0.8-1.1) Activated Partial Thromboplast Time 30 SEC (24-38) Sodium Level 140 mmol/L (136-145) 139 mmol/L (136-145) Potassium Level 4.7 mmol/L (3.5-5.1) 3.8 mmol/L (3.5-5.1) Chloride Level 103 mmol/L (98-107) 103 mmol/L (98-107) Carbon Dioxide Level 30 mmol/L (21-32) 29 mmol/L (21-32) Anion Gap 7 (6-14) 7 (6-14) Blood Urea Nitrogen 10 mg/dL (7-20) 9 mg/dL (7-20) Creatinine 0.7 mg/dL (0.6-1.0) 0.7 mg/dL (0.6-1.0) Estimated GFR (Cockcroft-Gault) 94.7 94.7 Glucose Level 97 mg/dL (70-99) 102 mg/dL (70-99) Calcium Level 9.1 mg/dL (8.5-10.1) 8.2 mg/dL (8.5-10.1) Serum Test, Qualitative Negative (NEG) Laboratory Tests Test 12/10/18 11:45 12/11/18 05:50 White Blood Count 9.2 x10^3/uL (4.0-11.0) 9.9 x10^3/uL (4.0-11.0) Red Blood Count 4.15 x10^6/uL (3.50-5.40) 3.62 x10^6/uL (3.50-5.40) Hemoglobin 12.7 g/dL (12.0-15.5) 10.9 g/dL (12.0-15.5) Hematocrit 35.6 % (36.0-47.0) 31.3 % (36.0-47.0) Mean Corpuscular Volume 86 fL (79-100) 86 fL (79-100) Mean Corpuscular Hemoglobin 31 pg (25-35) 30 pg (25-35) Mean Corpuscular Hemoglobin Concent 36 g/dL (31-37) 35 g/dL (31-37) Red Cell Distribution Width 13.1 % (11.5-14.5) 13.2 % (11.5-14.5) Platelet Count 312 x10^3/uL (140-400) 257 x10^3/uL (140-400) Neutrophils (%) (Auto) 74 % (31-73) 70 % (31-73) Lymphocytes (%) (Auto) 17 % (24-48) 22 % (24-48) Monocytes (%) (Auto) 7 % (0-9) 8 % (0-9) Eosinophils (%) (Auto) 2 % (0-3) 1 % (0-3) Basophils (%) (Auto) 0 % (0-3) 0 % (0-3) Neutrophils # (Auto) 6.8 x10^3uL (1.8-7.7) 6.9 x10^3uL (1.8-7.7) Lymphocytes # (Auto) 1.5 x10^3/uL (1.0-4.8) 2.1 x10^3/uL (1.0-4.8) Monocytes # (Auto) 0.6 x10^3/uL (0.0-1.1) 0.8 x10^3/uL (0.0-1.1) Eosinophils # (Auto) 0.2 x10^3/uL (0.0-0.7) 0.1 x10^3/uL (0.0-0.7) Basophils # (Auto) 0.0 x10^3/uL (0.0-0.2) 0.0 x10^3/uL (0.0-0.2) Prothrombin Time 12.4 SEC (11.7-14.0) Prothromb Time International Ratio 1.0 (0.8-1.1) Activated Partial Thromboplast Time 30 SEC (24-38) Sodium Level 140 mmol/L (136-145) 139 mmol/L (136-145) Potassium Level 4.7 mmol/L (3.5-5.1) 3.8 mmol/L (3.5-5.1) Chloride Level 103 mmol/L (98-107) 103 mmol/L (98-107) Carbon Dioxide Level 30 mmol/L (21-32) 29 mmol/L (21-32) Anion Gap 7 (6-14) 7 (6-14) Blood Urea Nitrogen 10 mg/dL (7-20) 9 mg/dL (7-20) Creatinine 0.7 mg/dL (0.6-1.0) 0.7 mg/dL (0.6-1.0) Estimated GFR (Cockcroft-Gault) 94.7 94.7 Glucose Level 97 mg/dL (70-99) 102 mg/dL (70-99) Calcium Level 9.1 mg/dL (8.5-10.1) 8.2 mg/dL (8.5-10.1) Serum Test, Qualitative Negative (NEG) Medications Current Medications Morphine Sulfate (Morphine Sulfate) 5 mg 1X ONCE IV Last administered on at 11:57; Start 12/10/18 at 11:30; Stop 12/10/18 at 16:04; Status DC Ondansetron HCl (Zofran) 4 mg PRN Q8HRS PRN IV NAUSEA/VOMITING; Start 12/10/18 at 11:30; Stop 12/11/18 at 11:29 Morphine Sulfate (Morphine Sulfate) 4 mg PRN Q2HR PRN IV PAIN Last administered on 12/11/18at 06:43; Start 12/10/18 at 11:30; Stop 12/11/18 at 11:29 Fentanyl Citrate (Fentanyl 2ml Vial) 25 mcg PRN Q5MIN PRN IV MILD PAIN; Start 12/10/18 at 11:30; Stop 12/10/18 at 16:04; Status DC Fentanyl Citrate (Fentanyl 2ml Vial) 50 mcg PRN Q5MIN PRN IV MODERATE TO SEVERE PAIN Last administered on 12/10/18at 14:55; Start 12/10/18 at 11:30; Stop 12/10/18 at 16:04; Status DC Morphine Sulfate (Morphine Sulfate) 1 mg PRN Q10MIN PRN IV SEVERE PAIN; Start 12/10/18 at 11:30; Stop 12/10/18 at 16:04; Status DC Ringer's Solution 1,000 ml @ 30 mls/hr Q24H IV Last administered on 12/10/18at 11:57; Start 12/10/18 at 11:30; Stop 12/10/18 at 15:57; Status DC Lidocaine HCl (Xylocaine-Mpf 1% 2ml Vial) 2 ml PRN 1X PRN ID PRIOR TO IV START ; Start 12/10/18 at 11:30; Stop 12/10/18 at 19:00; Status DC Hydromorphone HCl (Dilaudid) 0.5 mg PRN Q10MIN PRN IV SEV PAIN, Second choice; Start 12/10/18 at 11:30; Stop 12/10/18 at 16:04; Status DC Prochlorperazine Edisylate (Compazine) 5 mg PACU PRN PRN IV NAUSEA, MRX1 Last administered on 12/10/18at 14:32; Start 12/10/18 at 11:30; Stop 12/10/18 at 16:04 ; Status DC Fentanyl Citrate (Fentanyl 2ml Vial) 100 mcg STK-MED ONCE .ROUTE ; Start at 12:08; Stop 12/10/18 at 16:04; Status DC Sevoflurane (Ultane) 60 ml STK-MED ONCE IH ; Start 12/10/18 at 12:08; Stop 12/10 at 16:04; Status DC Dexamethasone Sodium Phosphate (Decadron) 20 mg STK-MED ONCE .ROUTE ; Start at 12:09; Stop 12/10/18 at 12:10; Status DC Propofol 20 ml @ As Directed STK-MED ONCE IV ; Start 12/10/18 at 12:09; Stop at 12:11; Status DC Lidocaine HCl (Lidocaine Pf 2% Vial) 5 ml STK-MED ONCE .ROUTE ; Start 12/10/18 at 12:09; Stop 12/10/18 at 16:04; Status DC Ondansetron HCl (Zofran) 4 mg STK-MED ONCE .ROUTE ; Start 12/10/18 at 12:09; Stop 12/10/18 at 16:04; Status DC Ketorolac Tromethamine (Toradol For Or Only) 30 mg STK-MED ONCE INJ ; Start at 12:09; Stop 12/10/18 at 16:04; Status DC Metoclopramide HCl (Reglan Vial) 10 mg STK-MED ONCE .ROUTE ; Start 12/10/18 at 12:12; Stop 12/10/18 at 12:14; Status DC Famotidine (Pepcid Vial) 20 mg STK-MED ONCE .ROUTE ; Start 12/10/18 at 12:12; Stop 12/10/18 at 12:14; Status DC Ondansetron HCl (Zofran) 4 mg STK-MED ONCE .ROUTE ; Start 12/10/18 at 12:24; Stop 12/10/18 at 16:04; Status DC Clindamycin Phosphate 50 ml @ 100 mls/hr 1X PREOP PRN IV SURGERY Last administered on 12/10/18at 12:50; Start 12/10/18 at 06:00; Stop 12/10/18 at 15:57 ; Status DC Ephedrine Sulfate (ePHEDrine PF IN SALINE SYRINGE) 50 mg STK-MED ONCE IV ; Start 12/10/18 at 12:53; Stop 12/10/18 at 12:55; Status DC Bupivacaine HCl/ Epinephrine Bitart (Sensorcain-Mpf Epi 0.5%-1:[id number]) 30 ml STK -MED ONCE .ROUTE Last administered on 12/10/18at 13:11; Start 12/10/18 at 12:57 ; Stop 12/10/18 at 12:59; Status DC Sevoflurane (Ultane) 30 ml STK-MED ONCE IH ; Start 12/10/18 at 13:51; Stop 12/10 at 16:04; Status DC Fentanyl Citrate (Fentanyl 2ml Vial) 100 mcg STK-MED ONCE .ROUTE ; Start at 14:15; Stop 12/10/18 at 16:04; Status DC Fentanyl Citrate (Fentanyl 2ml Vial) 100 mcg STK-MED ONCE .ROUTE ; Start at 14:34; Stop 12/10/18 at 16:04; Status DC Oxycodone/ Acetaminophen (Percocet 5/325) 1 tab PRN Q4HRS PRN PO MODERATE PAIN ; Start 12/10/18 at 16:00 Oxycodone/ Acetaminophen (Percocet 5/325) 2 tab PRN Q6HRS PRN PO SEVERE PAIN Last administered on 12/11/18at 08:32; Start 12/10/18 at 16:00 Enoxaparin Sodium (Lovenox Per Pharmacy Prophylaxis Dosing) 1 each DAILY PRN MC SEE COMMENTS; Start 12/11/18 at 09:00 Enoxaparin Sodium (Lovenox 40mg Syringe) 40 mg Q24H SQ Last administered on at 09:09; Start 12/11/18 at 09:00 Carbamazepine (TEGretol) 400 mg BID PO Last administered on 12/11/18at 09:09; Start 12/11/18 at 09:00 Cetirizine HCl (ZyrTEC) 10 mg DAILY PO Last administered on 12/11/18at 09:09; Start 12/11/18 at 09:00 Acyclovir (Zovirax) 400 mg BID PO Last administered on 12/11/18at 09:09; Start 12/11/18 at 09:00 Pantoprazole Sodium (Protonix) 40 mg BIDAC PO Last administered on 12/11/18at 09 :08; Start 12/11/18 at 09:00 Active Scripts Active Ultram (Tramadol Hcl) 50 Mg Tablet 1 Tab PO Q6HRS Clindamycin Hcl 150 Mg Capsule 3 Cap PO TID Reported Zyrtec (Cetirizine Hcl) 10 Mg Tablet 1 Tab PO DAILY Prilosec Otc (Omeprazole Magnesium) 20 Mg Tablet. 1 Tab PO BID Tegretol (Carbamazepine) 200 Mg Tablet 2 Tab PO BID Triamcinolone Acetonide 80 Gm Oint...g. 80 Gm TP Acyclovir 400 Mg Tablet 1 Tab PO BID Vitals/I & O Vital Sign - Last 24 Hours 12/10/18 12/10/18 12/10/18 12/10/18 11:35 12:15 13:15 14:04 Temp 98.4 98.3 98.4 98.3 Pulse 74 72 84 Resp 18 16 16 B/P (MAP) 137/102 123/72 Pulse Ox 100 98 100 O2 Delivery Room Air Nasal Cannula Room Air O2 Flow Rate 2.0 12/10/18 12/10/18 12/10/18 12/10/18 14:04 14:10 14:19 14:31 Pulse 80 Resp 14 12 14 B/P (MAP) 122/60 Pulse Ox 100 100 100 O2 Delivery Mask Simple Mask Simple Mask Room Air O2 Flow Rate 10 10.0 10 12/10/18 12/10/18 12/10/18 12/10/18 14:34 14:38 14:49 14:55 Temp 98.3 98.3 Pulse 74 86 Resp 16 14 14 14 B/P (MAP) 112/55 109/61 Pulse Ox 97 97 100 100 O2 Delivery Room Air Room Air Nasal Cannula Nasal Cannula O2 Flow Rate 2 2.0 12/10/18 12/10/18 12/10/18 12/10/18 15:00 15:04 15:30 15:45 Temp 98.3 98.2 98.2 98.3 98.2 98.2 Pulse 71 67 70 Resp 14 18 18 B/P (MAP) 109/64 119/90 (100) 152/99 (116) Pulse Ox 100 100 100 O2 Delivery Nasal Cannula Nasal Cannula Room Air Room Air O2 Flow Rate 2 2 12/10/18 12/10/18 12/10/18 12/10/18 15:55 16:15 16:45 16:50 Temp 98.2 98.2 98.2 98.2 Pulse 78 Resp 18 18 B/P (MAP) 138/93 (108) 154/107 (123) Pulse Ox 100 100 100 O2 Delivery Nasal Cannula Room Air Room Air Nasal Cannula O2 Flow Rate 2.0 2.0 12/10/18 12/10/18 12/10/18 12/10/18 16:50 17:00 19:00 19:15 Temp 98.2 98.6 98.2 98.6 Pulse 86 88 Resp 18 14 B/P (MAP) 152/99 (116) 120/85 (97) Pulse Ox 100 100 97 O2 Delivery Nasal Cannula Room Air Nasal Cannula O2 Flow Rate 2.0 1.5 2.0 12/10/18 12/10/18 12/10/18 12/10/18 19:35 20:00 21:18 21:48 Temp 98.6 98.6 Pulse 95 Resp 18 B/P (MAP) 118/69 (85) Pulse Ox 93 O2 Delivery Nasal Cannula Nasal Cannula Nasal Cannula O2 Flow Rate 1.5 1.5 1.5 1.5 12/11/18 12/11/18 12/11/18 12/11/18 01:58 02:58 03:00 06:43 Temp 98.1 98.1 Pulse 76 Resp 16 B/P (MAP) 110/77 (88) Pulse Ox 97 O2 Delivery Nasal Cannula Room Air Nasal Cannula Nasal Cannula O2 Flow Rate 1.5 1.5 1.5 12/11/18 12/11/18 12/11/18 12/11/18 07:00 07:13 07:40 08:32 Temp 97.9 97.9 Pulse 70 Resp 18 16 18 B/P (MAP) 102/69 (80) Pulse Ox 95 O2 Delivery Room Air Room Air Room Air Room Air Intake and Output 12/10/18 12/10/18 12/11/18 15:01 23:01 07:01 Intake Total 1065 ml 200 ml Output Total 10 ml 700 ml Balance 1055 ml -500 ml EHSAN SOMERS MD Dec 11, 2018 10:49
[2018-12-11 11:00] VITALS: BP 117/77
--- NOTE | 2018-12-11 13:53 | NUR ---
SW following for discharge planning. Discussed with RN, RN advised no SW needs at this time.
--- NOTE | 2018-12-11 13:59 | PDOC3 ---
Discharge Summary Date of Admission: Dec 10, 2018 Date of Discharge: Dec 11, 2018 Follow-Up: 3-5 days Admitting Diagnosis comment: DISCHARGE DX History of Present Illness ASSESSMENT AND PLAN: Fall with ankle fracture. ACUTE MECHANICAL admitted. consult Orthopedics. Postoperatively, well, no soa or chest pain, working with PT wound care, PT, OT, p.r.n. pain meds. HOME TODAY AFTER PT SESSION Vitals Vitals Vital Signs Date Time Temp Pulse Resp B/P (MAP) Pulse Ox O2 Delivery O2 Flow Rate FiO2 12/11/18 08:32 18 Room Air 12/11/18 07:00 97.9 70 102/69 (80) 95 97.9 12/11/18 06:43 1.5 Physical Exam Physical Exam GENERAL: She is alert, cooperative. HEART: Normal S1, S2. LUNGS: Clear to auscultation. ABDOMEN: Soft, NON distended. EXTREMITIES: The right lower extremity is in a POST OP SPLINT. Pedal pulses are intact. ENDOCRINE: No thyromegaly. LYMPHATICS: No cervical nodes. HEMATOPOIETIC: No bruising. PSYCHIATRIC: She is CALM General: Alert, Oriented X3, Cooperative, mild distress Heart: Regular rate Lungs: Clear Abdomen: Normal bowel sounds, Soft, No tenderness Extremities: No clubbing, No cyanosis Skin: No significant lesion FINAL DIAGNOSIS Problems Medical Problems: (1) Closed fibular fracture Status: Acute (2) Fall from standing Status: Acute (3) Fracture, posterior malleolus Status: Acute (4) Fx medial malleolus-closed Status: Acute Brief Hospital Course Ms. Huitron is a 38 old [sex] who presented with [ ACUTE ANKLE FX] CONDITION AT DISCHARGE: Improved Discharge Medications Current Medications Morphine Sulfate (Morphine Sulfate) 5 mg 1X ONCE IV Last administered on at 11:57; Start 12/10/18 at 11:30; Stop 12/10/18 at 16:04; Status DC Ondansetron HCl (Zofran) 4 mg PRN Q8HRS PRN IV NAUSEA/VOMITING; Start 12/10/18 at 11:30; Stop 12/11/18 at 11:29; Status DC Morphine Sulfate (Morphine Sulfate) 4 mg PRN Q2HR PRN IV PAIN Last administered on 12/11/18at 06:43; Start 12/10/18 at 11:30; Stop 12/11/18 at 11:29 ; Status DC Fentanyl Citrate (Fentanyl 2ml Vial) 25 mcg PRN Q5MIN PRN IV MILD PAIN; Start 12/10/18 at 11:30; Stop 12/10/18 at 16:04; Status DC Fentanyl Citrate (Fentanyl 2ml Vial) 50 mcg PRN Q5MIN PRN IV MODERATE TO SEVERE PAIN Last administered on 12/10/18at 14:55; Start 12/10/18 at 11:30; Stop 12/10/18 at 16:04; Status DC Morphine Sulfate (Morphine Sulfate) 1 mg PRN Q10MIN PRN IV SEVERE PAIN; Start 12/10/18 at 11:30; Stop 12/10/18 at 16:04; Status DC Ringer's Solution 1,000 ml @ 30 mls/hr Q24H IV Last administered on 12/10/18at 11:57; Start 12/10/18 at 11:30; Stop 12/10/18 at 15:57; Status DC Lidocaine HCl (Xylocaine-Mpf 1% 2ml Vial) 2 ml PRN 1X PRN ID PRIOR TO IV START ; Start 12/10/18 at 11:30; Stop 12/10/18 at 19:00; Status DC Hydromorphone HCl (Dilaudid) 0.5 mg PRN Q10MIN PRN IV SEV PAIN, Second choice; Start 12/10/18 at 11:30; Stop 12/10/18 at 16:04; Status DC Prochlorperazine Edisylate (Compazine) 5 mg PACU PRN PRN IV NAUSEA, MRX1 Last administered on 12/10/18at 14:32; Start 12/10/18 at 11:30; Stop 12/10/18 at 16:04 ; Status DC Fentanyl Citrate (Fentanyl 2ml Vial) 100 mcg STK-MED ONCE .ROUTE ; Start at 12:08; Stop 12/10/18 at 16:04; Status DC Sevoflurane (Ultane) 60 ml STK-MED ONCE IH ; Start 12/10/18 at 12:08; Stop 12/10 at 16:04; Status DC Dexamethasone Sodium Phosphate (Decadron) 20 mg STK-MED ONCE .ROUTE ; Start at 12:09; Stop 12/10/18 at 12:10; Status DC Propofol 20 ml @ As Directed STK-MED ONCE IV ; Start 12/10/18 at 12:09; Stop at 12:11; Status DC Lidocaine HCl (Lidocaine Pf 2% Vial) 5 ml STK-MED ONCE .ROUTE ; Start 12/10/18 at 12:09; Stop 12/10/18 at 16:04; Status DC Ondansetron HCl (Zofran) 4 mg STK-MED ONCE .ROUTE ; Start 12/10/18 at 12:09; Stop 12/10/18 at 16:04; Status DC Ketorolac Tromethamine (Toradol For Or Only) 30 mg STK-MED ONCE INJ ; Start at 12:09; Stop 12/10/18 at 16:04; Status DC Metoclopramide HCl (Reglan Vial) 10 mg STK-MED ONCE .ROUTE ; Start 12/10/18 at 12:12; Stop 12/10/18 at 12:14; Status DC Famotidine (Pepcid Vial) 20 mg STK-MED ONCE .ROUTE ; Start 12/10/18 at 12:12; Stop 12/10/18 at 12:14; Status DC Ondansetron HCl (Zofran) 4 mg STK-MED ONCE .ROUTE ; Start 12/10/18 at 12:24; Stop 12/10/18 at 16:04; Status DC Clindamycin Phosphate 50 ml @ 100 mls/hr 1X PREOP PRN IV SURGERY Last administered on 12/10/18at 12:50; Start 12/10/18 at 06:00; Stop 12/10/18 at 15:57 ; Status DC Ephedrine Sulfate (ePHEDrine PF IN SALINE SYRINGE) 50 mg STK-MED ONCE IV ; Start 12/10/18 at 12:53; Stop 12/10/18 at 12:55; Status DC Bupivacaine HCl/ Epinephrine Bitart (Sensorcain-Mpf Epi 0.5%-[id number]) 30 ml STK -MED ONCE .ROUTE Last administered on 12/10/18at 13:11; Start 12/10/18 at 12:57 ; Stop 12/10/18 at 12:59; Status DC Sevoflurane (Ultane) 30 ml STK-MED ONCE IH ; Start 12/10/18 at 13:51; Stop 12/10 at 16:04; Status DC Fentanyl Citrate (Fentanyl 2ml Vial) 100 mcg STK-MED ONCE .ROUTE ; Start at 14:15; Stop 12/10/18 at 16:04; Status DC Fentanyl Citrate (Fentanyl 2ml Vial) 100 mcg STK-MED ONCE .ROUTE ; Start at 14:34; Stop 12/10/18 at 16:04; Status DC Oxycodone/ Acetaminophen (Percocet 5/325) 1 tab PRN Q4HRS PRN PO MODERATE PAIN ; Start 12/10/18 at 16:00 Oxycodone/ Acetaminophen (Percocet 5/325) 2 tab PRN Q6HRS PRN PO SEVERE PAIN Last administered on 12/11/18at 08:32; Start 12/10/18 at 16:00; Stop 12/11/18 at 10:57; Status DC Enoxaparin Sodium (Lovenox Per Pharmacy Prophylaxis Dosing) 1 each DAILY PRN MC SEE COMMENTS; Start 12/11/18 at 09:00 Enoxaparin Sodium (Lovenox 40mg Syringe) 40 mg Q24H SQ Last administered on at 09:09; Start 12/11/18 at 09:00 Carbamazepine (TEGretol) 400 mg BID PO Last administered on 12/11/18at 09:09; Start 12/11/18 at 09:00 Cetirizine HCl (ZyrTEC) 10 mg DAILY PO Last administered on 12/11/18at 09:09; Start 12/11/18 at 09:00 Acyclovir (Zovirax) 400 mg BID PO Last administered on 12/11/18at 09:09; Start 12/11/18 at 09:00 Pantoprazole Sodium (Protonix) 40 mg BIDAC PO Last administered on 12/11/18at 09 :08; Start 12/11/18 at 09:00 Oxycodone/ Acetaminophen (Percocet 5/325) 2 tab PRN Q4HRS PRN PO SEVERE PAIN Last administered on 12/11/18at 12:16; Start 12/11/18 at 11:00 Active Scripts Active Ultram (Tramadol Hcl) 50 Mg Tablet 1 Tab PO Q6HRS Clindamycin Hcl 150 Mg Capsule 3 Cap PO TID Reported Zyrtec (Cetirizine Hcl) 10 Mg Tablet 1 Tab PO DAILY Prilosec Otc (Omeprazole Magnesium) 20 Mg Tablet.dr 1 Tab PO BID Tegretol (Carbamazepine) 200 Mg Tablet 2 Tab PO BID Triamcinolone Acetonide 80 Gm Oint...g. 80 Gm TP Acyclovir 400 Mg Tablet 1 Tab PO BID Vital Signs Vital Signs Date Time Temp Pulse Resp B/P (MAP) Pulse Ox O2 Delivery O2 Flow Rate FiO2 12/11/18 13:16 16 Room Air 12/11/18 11:00 97.9 79 117/77 (90) 95 97.9 12/11/18 06:43 1.5 Labs Laboratory Tests Test 12/10/18 11:45 12/11/18 05:50 White Blood Count 9.2 x10^3/uL (4.0-11.0) 9.9 x10^3/uL (4.0-11.0) Red Blood Count 4.15 x10^6/uL (3.50-5.40) 3.62 x10^6/uL (3.50-5.40) Hemoglobin 12.7 g/dL (12.0-15.5) 10.9 g/dL (12.0-15.5) Hematocrit 35.6 % (36.0-47.0) 31.3 % (36.0-47.0) Mean Corpuscular Volume 86 fL (79-100) 86 fL (79-100) Mean Corpuscular Hemoglobin 31 pg (25-35) 30 pg (25-35) Mean Corpuscular Hemoglobin Concent 36 g/dL (31-37) 35 g/dL (31-37) Red Cell Distribution Width 13.1 % (11.5-14.5) 13.2 % (11.5-14.5) Platelet Count 312 x10^3/uL (140-400) 257 x10^3/uL (140-400) Neutrophils (%) (Auto) 74 % (31-73) 70 % (31-73) Lymphocytes (%) (Auto) 17 % (24-48) 22 % (24-48) Monocytes (%) (Auto) 7 % (0-9) 8 % (0-9) Eosinophils (%) (Auto) 2 % (0-3) 1 % (0-3) Basophils (%) (Auto) 0 % (0-3) 0 % (0-3) Neutrophils # (Auto) 6.8 x10^3uL (1.8-7.7) 6.9 x10^3uL (1.8-7.7) Lymphocytes # (Auto) 1.5 x10^3/uL (1.0-4.8) 2.1 x10^3/uL (1.0-4.8) Monocytes # (Auto) 0.6 x10^3/uL (0.0-1.1) 0.8 x10^3/uL (0.0-1.1) Eosinophils # (Auto) 0.2 x10^3/uL (0.0-0.7) 0.1 x10^3/uL (0.0-0.7) Basophils # (Auto) 0.0 x10^3/uL (0.0-0.2) 0.0 x10^3/uL (0.0-0.2) Prothrombin Time 12.4 SEC (11.7-14.0) Prothromb Time International Ratio 1.0 (0.8-1.1) Activated Partial Thromboplast Time 30 SEC (24-38) Sodium Level 140 mmol/L (136-145) 139 mmol/L (136-145) Potassium Level 4.7 mmol/L (3.5-5.1) 3.8 mmol/L (3.5-5.1) Chloride Level 103 mmol/L (98-107) 103 mmol/L (98-107) Carbon Dioxide Level 30 mmol/L (21-32) 29 mmol/L (21-32) Anion Gap 7 (6-14) 7 (6-14) Blood Urea Nitrogen 10 mg/dL (7-20) 9 mg/dL (7-20) Creatinine 0.7 mg/dL (0.6-1.0) 0.7 mg/dL (0.6-1.0) Estimated GFR (Cockcroft-Gault) 94.7 94.7 Glucose Level 97 mg/dL (70-99) 102 mg/dL (70-99) Calcium Level 9.1 mg/dL (8.5-10.1) 8.2 mg/dL (8.5-10.1) Serum Test, Qualitative Negative (NEG) Laboratory Tests Test 12/11/18 05:50 White Blood Count 9.9 x10^3/uL (4.0-11.0) Red Blood Count 3.62 x10^6/uL (3.50-5.40) Hemoglobin 10.9 g/dL (12.0-15.5) Hematocrit 31.3 % (36.0-47.0) Mean Corpuscular Volume 86 fL (79-100) Mean Corpuscular Hemoglobin 30 pg (25-35) Mean Corpuscular Hemoglobin Concent 35 g/dL (31-37) Red Cell Distribution Width 13.2 % (11.5-14.5) Platelet Count 257 x10^3/uL (140-400) Neutrophils (%) (Auto) 70 % (31-73) Lymphocytes (%) (Auto) 22 % (24-48) Monocytes (%) (Auto) 8 % (0-9) Eosinophils (%) (Auto) 1 % (0-3) Basophils (%) (Auto) 0 % (0-3) Neutrophils # (Auto) 6.9 x10^3uL (1.8-7.7) Lymphocytes # (Auto) 2.1 x10^3/uL (1.0-4.8) Monocytes # (Auto) 0.8 x10^3/uL (0.0-1.1) Eosinophils # (Auto) 0.1 x10^3/uL (0.0-0.7) Basophils # (Auto) 0.0 x10^3/uL (0.0-0.2) Sodium Level 139 mmol/L (136-145) Potassium Level 3.8 mmol/L (3.5-5.1) Chloride Level 103 mmol/L (98-107) Carbon Dioxide Level 29 mmol/L (21-32) Anion Gap 7 (6-14) Blood Urea Nitrogen 9 mg/dL (7-20) Creatinine 0.7 mg/dL (0.6-1.0) Estimated GFR (Cockcroft-Gault) 94.7 Glucose Level 102 mg/dL (70-99) Calcium Level 8.2 mg/dL (8.5-10.1) Allergies Allergies Coded Allergies Type Severity Reaction Last Updated Verified Penicillins Allergy Severe 07/02/17 Yes Sulfa (Sulfonamide Antibiotics) Allergy Severe 07/02/17 Yes latex Adverse Reaction Intermediate Rash 12/10/18 Yes Disposition/Orders: D/C to Home Patient Instructions D/C PLANNING 33 MIN EHSAN SOMERS MD Dec 11, 2018 13:59
--- NOTE | 2018-12-11 14:00 | DISCH ---
DISCHARGE INSTRUCTIONS Condition on Discharge Condition on Discharge: Stable Activity After Discharge Activity Instructions for Disc: Activity as tolerated Lifting Instructions after Dis: No heavy lifting, No pulling or pushing Driving Instructions after Dis: Do not drive Weight Bearing Status after Di: Partial weight bearing Diet after Discharge Diet after Discharge: Regular Wound Incision Care Wound/Incision Care: Keep wound/cast CDI, Keep wound elevated Checks after Discharge Checks after discharge: Check blood press - daily Contacting the DR. after DC Call your doctor for: If your condition worsens EHSAN SOMERS MD Dec 11, 2018 14:00
[2018-12-11] MEDS ORDERED: OXYC1TAB15 PO (14:04)
--- NOTE | 2018-12-11 14:42 | NUR ---
SW following, pt requested information about a knee walker. SW contacted [employer] for quote $40 for 2 weeks or $65 a month. Pt was given the information. No further SW needs at this time, pt possibly discharging home today with family.
[2018-12-11 15:00] VITALS: BP 104/64
--- NOTE | 2018-12-11 15:45 | NUR ---
Discharge orders placed. Discussed discharge medications/POC/follow up appt with pt. Explained to pt to keep dressing CDI. Do not change dressing until f/u appt with Dr. Hutson 12/19/2018 at 1430. Pt voiced understanding. Pt request pain medication at this time. Explained to pt medication is early. Pt explains she has a bumpy ride and would like something. This RN voiced understanding giving pt medication. Prescription for Percocet #60 given pt. Discussed she needs to fill prescription for pain control. Pt voiced understanding. IV removed without complications. Pt wheeled out to hospital exit accompanied by NO Graham and spouse.
== END 2018-12-11 15:43 | disposition home or self-care (01) | DRG 494 ==
LOC: ER 09:21 → 4 NORTH 11:37
PROVIDERS: ADMIT Internal Medicine; ATTEND Internal Medicine
PROC: 0QSG04Z Reposition Right Tibia with Internal Fixation Device, Open Approach (ICD-10-PCS; 2018-12-10)
PROC: 0QSJ04Z Reposition Right Fibula with Internal Fixation Device, Open Approach (ICD-10-PCS; principal; 2018-12-10 12:30)
DX: S82.841A Displaced bimalleolar fracture of right lower leg, initial encounter for closed fracture (principal); F31.9 Bipolar disorder, unspecified; F41.9 Anxiety disorder, unspecified; G25.81 Restless legs syndrome; K21.9 Gastro-esophageal reflux disease without esophagitis; W00.0XXA Fall on same level due to ice and snow, initial encounter; Z82.49 Family history of ischemic heart disease and other diseases of the circulatory system; Z87.440 Personal history of urinary (tract) infections; Z88.0 Allergy status to penicillin; Z88.2 Allergy status to sulfonamides; Z91.040 Latex allergy status; Y93.89 Activity, other specified; Y92.89 Other specified places as the place of occurrence of the external cause; Y99.8 Other external cause status; Z90.49 Acquired absence of other specified parts of digestive tract
CPT/HCPCS: 36415; 73610; 76000; 80048; 84703; 85025; 85610; 85730; 96374; A7015; C1713; J0780; J1100; J1650; J1885; J2001; J2270; J2405; J2704; J2765; J3010; J3490; J7120; 97116; 97535; 99285-25; G0378